=== PATIENT | female | born 1990 | race Caucasian/White ===

== ENCOUNTER 2019-08-19 07:59 | Emergency (ER) | payer BC, MEDICAID, OTHER ==
[2019-08-19] MEDS ORDERED: IPRATROPIUM/ALBUTEROL SULFATE 3 ML SOLUTION IH ONE (09:21)
[2019-08-19] MEDS ORDERED: AZITHROMYCIN 250 MG TABLET PO ONE (09:54)
== END 2019-08-19 10:19 | disposition home or self-care (01) ==
LOC: EDH 07:59
DX: J20.9 Acute bronchitis, unspecified (principal)
CPT/HCPCS: 71045; 81025; 94640

== ENCOUNTER 2022-05-06 10:39 | Emergency (ER) | payer BC ==
[~2022-05-06] VITALS: Ht 162.6 cm; Wt 55.8 kg
[2022-05-06 11:08] LABS: BASOPHILS % (AUTO) 0.7 % (0.0-5.0); EOSINOPHILS % (AUTO) 4.1 % (0.0-8.0); HEMATOCRIT 31.5 % (36-48); LYMPHOCYTES % (AUTO) 38.3 % (21.0-51.0); MEAN CORPUSCULAR HEMOGLOBIN 25.5 pg (27.0-33.0); MEAN CORPUSCULAR HGB CONC 32.1 g/dL (32.0-36.0); MEAN CORPUSCULAR VOLUME 79.5 fL (79-99); MONOCYTES % (AUTO) 10.1 % (3.0-13.0); NEUTROPHILS % (AUTO) 46.5 % (40.0-77.0); PLATELET COUNT (AUTO) 283 K/uL (130-400); RED BLOOD CELL COUNT(AUTO) 3.96 MIL/uL (4.00-5.50); RED CELL DISTRIBUTION WIDTH 14.4 % (11.0-15.5); WHITE BLOOD COUNT (AUTO) 5.9 K/uL (4.8-10.8)
[2022-05-06 11:10] LABS: APPEARANCE,URINE CLEAR (CLEAR); BILIRUBIN,URINE NEGATIVE (NEGATIVE); COLOR,URINE LIGHT-YELLOW (YELLOW); GLUCOSE, URINE (UA) NEGATIVE (NEGATIVE); KETONES,URINE NEGATIVE (NEGATIVE); LEUKOCYTE ESTERASE ,URINE NEGATIVE Leu/uL (NEGATIVE); NITRATE,URINE NEGATIVE (NEGATIVE); OCCULT BLOOD,URINE MODERATE (NEGATIVE); PROTEIN,URINE NEGATIVE (NEGATIVE); UROBILINOGEN,URINE 0.2 mg/dL (0.2-1.0)
[2022-05-06 11:11] LABS: HCG,QUALITATIVE URINE POSITIVE (NEGATIVE)
[2022-05-06 11:12] LABS: MUCUS,URINE RARE LPF (None Seen); RBC,URINE 0-1 /HPF (0-1); SQUAMOUS EPITHELIAL CELL,UR RARE /HPF (0-2)
[2022-05-06 11:18] LABS: CREATININE 0.7 mg/dL (0.5-1.5); POTASSIUM 3.9 mmol/L (3.5-5.1)
[2022-05-06 11:28] LABS: ALBUMIN 3.7 g/dL (3.5-5.0); TOTAL PROTEIN, SERUM 7.9 g/dL (6.0-8.3)
[2022-05-06 14:15] VITALS: BP 123/78
== END 2022-05-06 14:22 | disposition home or self-care (01) ==
LOC: EDH 10:39
DX: O46.91 Antepartum hemorrhage, unspecified, first trimester (principal); Z3A.01 Less than 8 weeks gestation of pregnancy
CPT/HCPCS: 36415; 76801; 80053; 81001; 81025; 84702; 85025

== ENCOUNTER 2024-04-05 22:20 | Inpatient (IN) | payer BC ==
[~2024-04-05] VITALS: Ht 162.6 cm; Wt 61.2 kg
[2024-04-05 23:00] LABS: APPEARANCE,URINE CLEAR (CLEAR); BILIRUBIN,URINE NEGATIVE (NEGATIVE); COLOR,URINE YELLOW (YELLOW); GLUCOSE, URINE (UA) NEGATIVE (NEGATIVE); KETONES,URINE NEGATIVE (NEGATIVE); LEUKOCYTE ESTERASE ,URINE 75 Leu/uL (NEGATIVE); NITRATE,URINE NEGATIVE (NEGATIVE); OCCULT BLOOD,URINE NEGATIVE (NEGATIVE); PH,URINE 5.5 (5.0-8.0); PROTEIN,URINE 20 mg/dL (NEGATIVE); UROBILINOGEN,URINE 0.2 mg/dL (0.2-1.0)
[2024-04-05 23:03] LABS: HCG,QUALITATIVE URINE NEGATIVE (NEGATIVE)
[2024-04-05 23:05] LABS: ADD UA MICROSCOPIC YES
[2024-04-05 23:06] LABS: BACTERIA,URINE RARE /HPF (None Seen); MUCUS,URINE MANY LPF (None Seen); RBC,URINE 0-1 /HPF (0-1); SQUAMOUS EPITHELIAL CELL,UR FEW /HPF (0-2)
[2024-04-05] MEDS: ondanSETRON 4MG INJ IVP ONE (23:09)
[2024-04-05] MEDS: LACTATED RINGERS 1000ML 1,000 ML IV STA (23:09)
[2024-04-05 23:11] LABS: BASOPHILS # (AUTO) 0.03 K/uL (0.00-0.20); BASOPHILS % (AUTO) 0.2 % (0.0-5.0); EOSINOPHILS # (AUTO) 0.02 K/uL (0.00-0.70); EOSINOPHILS % (AUTO) 0.1 % (0.0-8.0); HEMATOCRIT 41.4 % (36-48); LYMPHOCYTES # (AUTO) 1.1 K/uL (1.0-4.8); LYMPHOCYTES % (AUTO) 6.1 % (21.0-51.0); MEAN CORPUSCULAR HEMOGLOBIN 27.9 pg (27.0-33.0); MEAN CORPUSCULAR HGB CONC 33.1 g/dL (32.0-36.0); MEAN CORPUSCULAR VOLUME 84.3 fL (79-99); MONOCYTES # (AUTO) 1.2 K/uL (0.1-1.0); MONOCYTES % (AUTO) 6.3 % (3.0-13.0); NEUTROPHILS % (AUTO) 86.8 % (40.0-77.0); PLATELET COUNT (AUTO) 252 K/uL (130-400); RED BLOOD CELL COUNT(AUTO) 4.91 MIL/uL (4.00-5.50); RED CELL DISTRIBUTION WIDTH 13.2 % (11.0-15.5); WHITE BLOOD COUNT (AUTO) 18.5 K/uL (4.8-10.8)
[2024-04-05 23:24] LABS: POTASSIUM 3.6 mmol/L (3.5-5.1)
[2024-04-05 23:27] LABS: ALBUMIN 4.4 g/dL (3.5-5.0); BILIRUBIN,DIRECT 0.1 mg/dL (0.0-0.3); BILIRUBIN,TOTAL 0.5 mg/dL (0.2-1.0); MAGNESIUM 1.8 mg/dL (1.80-2.40); TOTAL PROTEIN, SERUM 9.2 g/dL (6.0-8.3)
[2024-04-06] VITALS (8 sets, daily range): BP systolic 103–129; BP diastolic 60–80; PULSE 74–118; RESP 16–20; TEMP 98.3–102.5; O2SAT 98
[2024-04-06 00:08] LABS: WBC MORPHOLOGY CONSISTENT W/DIFF
[2024-04-06] MEDS: cefTRIAXone 1G VIAL IVPB ONE (00:10)
[2024-04-06] MEDS ORDERED: DiphenhydrAMINE HCL 25 MG CAPSULE PO PRN (05:00)
[2024-04-06] MEDS ORDERED: guaiFENesin-DM 200/20MG 10ML PO PRN (05:00)
[2024-04-06] MEDS ORDERED: morPHINE 4 MG SYG IV PRN (05:00)
[2024-04-06] MEDS ORDERED: acetaMINOPHEN WITH coDEINE 1 TAB TAB PO PRN (05:00)
[2024-04-06] MEDS ORDERED: NITROGLYCERIN 0.4 MG SL TAB SL PRN (05:00)
[2024-04-06] MEDS ORDERED: MAG/ALUM/SIMETH 30 ML UDCUP PO PRN (05:00)
[2024-04-06] MEDS: LACTATED RINGERS 1000ML 1,000 ML IV SCH (05:23)
[2024-04-06] MEDS: metRONIDazole 500MG/100ML BAG 100 ML IV SCH (05:23)
[2024-04-06] MEDS: acetaMINOPHEN 325 MG TAB PO PRN (08:01)
[2024-04-06] MEDS: levoFLOXacin 500 MG/D5W 100 ML 100 ML IV SCH (08:18)
[2024-04-06] MEDS: ENOXAPARIN SODIUM 40 MG/0.4 ML SYRINGE SQ SCH (09:00)
[2024-04-06] MEDS: FAMOTIDINE 20MG VIAL IV SCH (09:56)
[2024-04-06] MEDS: PoTASSium chloRIDE 20MEQ ER 20 MEQ ERTAB PO ONE ×2 (09:58→10:05)
[2024-04-06] MEDS ORDERED: PoTASSium chloRIDE 20MEQ/100ML 100 ML IV PRN (10:00)
[2024-04-06] MEDS ORDERED: PoTASSium chl 10% ELIXIR 20MEQ 20 MEQ/15 ML UDCUP PO PRN (10:00)
[2024-04-06] MEDS: ondanSETRON 4MG INJ IV PRN (11:26)
[2024-04-07] VITALS (8 sets, daily range): BP systolic 94–125; BP diastolic 58–74; PULSE 68–82; RESP 16–20; TEMP 98–98.6; O2SAT 96–98
[2024-04-07 05:21] LABS: BASOPHILS # (AUTO) 0.02 K/uL (0.00-0.20); BASOPHILS % (AUTO) 0.5 % (0.0-5.0); EOSINOPHILS % (AUTO) 2.3 % (0.0-8.0); HEMATOCRIT 31.8 % (36-48); IMMATURE GRANULOCYTE ABSOLUTE 0.02 K/uL (0-1); LYMPHOCYTES # (AUTO) 1.3 K/uL (1.0-4.8); LYMPHOCYTES % (AUTO) 29.2 % (21.0-51.0); MEAN CORPUSCULAR HEMOGLOBIN 27.6 pg (27.0-33.0); MEAN CORPUSCULAR HGB CONC 32.1 g/dL (32.0-36.0); MEAN CORPUSCULAR VOLUME 85.9 fL (79-99); MONOCYTES # (AUTO) 0.6 K/uL (0.1-1.0); MONOCYTES % (AUTO) 13.7 % (3.0-13.0); NEUTROPHILS # (AUTO) 2.3 K/uL (1.8-7.7); NEUTROPHILS % (AUTO) 53.8 % (40.0-77.0); PLATELET COUNT (AUTO) 179 K/uL (130-400); RED CELL DISTRIBUTION WIDTH 13.7 % (11.0-15.5); WHITE BLOOD COUNT (AUTO) 4.3 K/uL (4.8-10.8)
[2024-04-07 05:34] LABS: ALBUMIN 2.8 g/dL (3.5-5.0); BILIRUBIN,TOTAL 0.2 mg/dL (0.2-1.0); CREATININE 0.8 mg/dL (0.5-1.0); MAGNESIUM 1.8 mg/dL (1.80-2.40); POTASSIUM 3.7 mmol/L (3.5-5.1); TOTAL PROTEIN, SERUM 6.5 g/dL (6.0-8.3)
[2024-04-07] MEDS: PoTASSium chloRIDE 20MEQ ER 20 MEQ ERTAB PO PRN (09:01)
[2024-04-07] MEDS ORDERED: LOPERAMIDE 1 MG/7.5 ML UDCUP PO PRN (09:30)
[2024-04-08 03:57] VITALS: BP 108/61; PULSE 63; RESP 16; TEMP 98.1
[2024-04-08 05:49] LABS: BASOPHILS # (AUTO) 0.01 K/uL (0.00-0.20); BASOPHILS % (AUTO) 0.2 % (0.0-5.0); HEMATOCRIT 33.6 % (36-48); IMMATURE GRANULOCYTE ABSOLUTE 0.02 K/uL (0-1); LYMPHOCYTES # (AUTO) 1.6 K/uL (1.0-4.8); LYMPHOCYTES % (AUTO) 32.5 % (21.0-51.0); MEAN CORPUSCULAR HEMOGLOBIN 27.8 pg (27.0-33.0); MEAN CORPUSCULAR HGB CONC 32.1 g/dL (32.0-36.0); MEAN CORPUSCULAR VOLUME 86.4 fL (79-99); MONOCYTES # (AUTO) 0.7 K/uL (0.1-1.0); MONOCYTES % (AUTO) 14.3 % (3.0-13.0); NEUTROPHILS # (AUTO) 2.4 K/uL (1.8-7.7); NEUTROPHILS % (AUTO) 48.6 % (40.0-77.0); PLATELET COUNT (AUTO) 177 K/uL (130-400); RED BLOOD CELL COUNT(AUTO) 3.89 MIL/uL (4.00-5.50); RED CELL DISTRIBUTION WIDTH 13.6 % (11.0-15.5)
[2024-04-08 06:08] LABS: ALBUMIN 3.1 g/dL (3.5-5.0); BILIRUBIN,TOTAL 0.1 mg/dL (0.2-1.0); CREATININE 0.8 mg/dL (0.5-1.0); MAGNESIUM 1.9 mg/dL (1.80-2.40); POTASSIUM 3.8 mmol/L (3.5-5.1); TOTAL PROTEIN, SERUM 6.7 g/dL (6.0-8.3)
[2024-04-08 07:43] VITALS: BP 106/56; PULSE 68; RESP 17; TEMP 98.3
[2024-04-08 08:00] VITALS: O2SAT 99
[2024-04-08 08:10] LABS: C DIFFICILE TOXIN A/B Not Detected (Not Detected); ENTEROAGGREGATIVE ECOLI Not Detected (Not Detected); GIARDIA LAMBLIA Not Detected (Not Detected); PLESIOMONAS SHIGELOIDES Not Detected (Not Detected); SAPOVIRUS Not Detected (Not Detected); SHIGELLA/ENTEROINVASIVE E COLI Not Detected (Not Detected); VIBRIO Not Detected (Not Detected); VIBRIO CHOLERAE Not Detected (Not Detected)
[2024-04-08] MEDS: LACTOBACILLUS RHAMNOSUS GG 1 EACH CAP.SPRINK PO SCH (09:17)
[2024-04-08 11:47] VITALS: BP 117/67; PULSE 67; RESP 17; TEMP 98.1
[2024-04-08] MEDS ORDERED: LEVO-70 PO (12:51)
[2024-04-08] MEDS ORDERED: LACT1CAP79 PO (12:51)
== END 2024-04-08 13:25 | disposition home or self-care (01) | DRG 872 ==
LOC: EDH 22:20 → EDHIP 04-06 04:58 → 3BH 04-06 05:16
PROVIDERS: ADMIT Hospitalist; ATTEND Hospitalist
DX: A41.9 Sepsis, unspecified organism (principal); N13.6 Pyonephrosis; E11.9 Type 2 diabetes mellitus without complications; E83.51 Hypocalcemia; E86.0 Dehydration; I10 Essential (primary) hypertension; K52.9 Noninfective gastroenteritis and colitis, unspecified; Z79.899 Other long term (current) drug therapy; E05.90 Thyrotoxicosis, unspecified without thyrotoxic crisis or storm
CPT/HCPCS: 36415; 74176; 80048; 80053; 80076; 81001; 81025; 83605; 83690; 83735; 84145; 85025; 87040; 87086; 87507; 93005; 96375; G0378; J0696; J1650; J1956; J2405; J3490; J7120